=== PATIENT | female | born 1990 | race Two or more races ===

== ENCOUNTER 2017-04-11 08:41 | Emergency (ER) | payer MEDICAID, OTHER ==
[~2017-04-11] VITALS: Ht 160 cm; Wt 71.5 kg
[~2017-04-11 08:41] MED LIST: ALBU18HF2; PREN-88 PO
[2017-04-11] MEDS ORDERED: DEXAMETHASONE 10 MG/ML VIAL IM ONE (09:00)
[2017-04-11] MEDS ORDERED: KETOROLAC 60MG/2ML VIAL IM ONE (09:00)
[2017-04-11 09:27] VITALS: BP 114/67
== END 2017-04-11 10:13 | disposition home or self-care (01) ==
LOC: ER 08:53
DX: J02.8 Acute pharyngitis due to other specified organisms (principal); B96.89 Other specified bacterial agents as the cause of diseases classified elsewhere; J45.909 Unspecified asthma, uncomplicated
CPT/HCPCS: 81025; 96372; 99284; J1100; J1885

== ENCOUNTER 2018-09-26 08:08 | Emergency (ER) | payer MEDICAID, OTHER ==
[~2018-09-26] VITALS: Ht 162.6 cm; Wt 86.0 kg
[2018-09-26] MEDS ORDERED: IPRATROPIUM BROMIDE (0.02%) 0.5MG/2.5ML NEB HHN STA (08:36)
[2018-09-26] MEDS ORDERED: ALBUTEROL (0.083%) 2.5MG/3ML NEB HHN STA (08:36)
[2018-09-26] MEDS ORDERED: PREDNISONE 20MG TABLET PO STA (08:36)
[2018-09-26 11:35] VITALS: BP 116/72
== END 2018-09-26 13:09 | disposition home or self-care (01) ==
LOC: ER 08:08
DX: J45.901 Unspecified asthma with (acute) exacerbation (principal); F12.10 Cannabis abuse, uncomplicated; Z79.899 Other long term (current) drug therapy
CPT/HCPCS: 71045; 81025; 94640; 99285; J7512; J7611

== ENCOUNTER 2019-01-29 14:16 | Emergency (ER) | payer OTHER ==
[~2019-01-29] VITALS: Ht 157.5 cm; Wt 86.0 kg
[2019-01-29] MEDS ORDERED: IBUPROFEN 800MG TABLET PO ONE (15:00)
[2019-01-29 18:15] VITALS: BP 118/65
== END 2019-01-29 18:32 | disposition home or self-care (01) ==
LOC: ER 14:16
DX: S83.92XA Sprain of unspecified site of left knee, initial encounter (principal); J45.909 Unspecified asthma, uncomplicated; F12.10 Cannabis abuse, uncomplicated; X58.XXXA Exposure to other specified factors, initial encounter; Y93.89 Activity, other specified; Y92.018 Other place in single-family (private) house as the place of occurrence of the external cause
CPT/HCPCS: 73562; 81025; 99283; L1830; Z7610

== ENCOUNTER 2019-03-03 15:37 | Emergency (ER) | payer OTHER ==
[~2019-03-03] VITALS: Ht 162.6 cm; Wt 84.3 kg
[2019-03-03 15:45] VITALS: BP 113/72
[2019-03-03] MEDS ORDERED: MORPHINE SULFATE 10 MG/ML CPJ IM ONE (19:15)
[2019-03-03] MEDS ORDERED: KETOROLAC 60MG/2ML VIAL IM ONE (19:15)
== END 2019-03-03 20:30 | disposition home or self-care (01) ==
LOC: ER 16:46
DX: S39.012A Strain of muscle, fascia and tendon of lower back, initial encounter (principal); J45.909 Unspecified asthma, uncomplicated; V49.49XA Driver injured in collision with other motor vehicles in traffic accident, initial encounter; Y93.89 Activity, other specified; Y92.89 Other specified places as the place of occurrence of the external cause; Y99.8 Other external cause status
CPT/HCPCS: 96372; 99283; J1885; J2270